=== PATIENT | female | born 1955 | race Caucasian/White ===

== ENCOUNTER 2017-06-07 05:59 | Day surgery (SDC) | payer BC ==
[2017-06-07] MEDS ORDERED: Versed 2 MG/2 ML Injection IV ONE (06:00)
[2017-06-07] MEDS ORDERED: DIPRIVAN 200 MG/20 ML IV ONE (06:00)
[2017-06-07] MEDS ORDERED: Lactated Ringers 1,000 ML IV SCH (06:30)
--- NOTE | 2017-06-07 08:09 | OP ---
SURGERY DATE/TIME: 06/07/2017 0744 PREOPERATIVE DIAGNOSIS: Screening exam. POSTOPERATIVE DIAGNOSIS: Normal colon. PROCEDURE: Colonoscopy. SURGEON: Dr. Gold. ANESTHESIA: Medications were given by the anesthesia department. HISTORY: The patient is a 62 year old white female presenting now for her first screening colonoscopy. She was appraised of the risks of the procedure including the risk of perforation, phlebitis, untoward reaction to medication, bleeding or missed lesions. The patient verbalized her understanding and desired to have the procedure performed. DESCRIPTION OF PROCEDURE: The patient was given the medications by the anesthesia department. She had continuous pulse oximetry, ECG monitoring, intermittent blood pressure monitoring and tidal CO2 monitoring during the examination. She was placed in left lateral decubitus position. A digital rectal examination was performed and revealed normal anal sphincter tone and no masses. The flexible Olympus pediatric colonoscope was used to intubate the rectum. A view of the colon was developed sequentially to the cecum. Upon insertion and withdrawal, including a retroflex view in the rectum, no mucosal lesions were encountered. The scope was removed from the patient who tolerated the procedure well and was sent back to OP recovery in good condition. The prep was noted to be fair to good.
[2017-06-07 08:41] VITALS: O2SAT 96
[2017-06-07 08:58] VITALS: BP 122/72; PULSE 65
== END 2017-06-07 09:00 | disposition home or self-care (01) ==
LOC: SDC 05:59
PROVIDERS: ATTEND Family Medicine
PROC: 0DJD8ZZ Inspection of Lower Intestinal Tract, Via Natural or Artificial Opening Endoscopic (ICD-10-PCS; principal; 2017-06-07)
DX: Z12.11 Encounter for screening for malignant neoplasm of colon (principal)
CPT/HCPCS: 00810; J2250; J2704

== ENCOUNTER 2018-10-21 19:47 | Emergency (ER) | payer BC ==
[2018-10-21] MEDS ORDERED: ANTIVERT 25 MG PO ONE (20:10)
[2018-10-21 20:21] LABS: BASOPHIL % 0.4 % (0.0-0.4); Basophil (Absolute #) 0.05 (0-0.4); Eosinophil % 1.4 % (0.00-5.0); Eosinophil (Absolute #) 0.17 (0-0.5); Granulocyte Absolute (ANC) 7.45 (1.4-6.9); Granulocytes % 60.9 % (36.0-66.0); Hematocrit 44.1 % (35-47); Hemoglobin 14.7 gm/dl (12.0-16.0); Lymphocyte (Absolute #) 3.33 (1.0-4.6); Lymphocytes % 27.2 % (24.0-44.0); Mean Cell Volume 89.8 fl (78-100); Mean Corpuscular Hemoglobin 29.9 pg (26-32); Mean Corpuscular Hgb Concent. 33.3 g/dl (32-36); Mean Platelet Volume 9.4 fl (6-9.5); Monocyte (Absolute #) 1.23 (0.0-1.3); Monocytes % 10.1 % (0.0-12.0); Platelet Count 304 K/mm3 (150-450); Red Blood Count 4.91 M/mm3 (4.1-5.4); Red Cell Distribution Width 13.2 % (11.5-14.0); White Blood Count 12.2 K/mm3 (4.0-10.5)
[2018-10-21 20:31] LABS: ALBUMIN 4.8 g/dL (3.5-5.0); ALKALINE PHOSPHATASE 60 U/L (38-126); BLOOD UREA NITROGEN 13 mg/dL (7-17); CHLORIDE 102 mmol/L (98-107); Calcium 9.8 mg/dL (8.4-10.2); Carbon Dioxide 33 mmol/L (22-30); Creatinine 1 0.79 mg/dL (0.52-1.04); Glucose 92 mg/dL (74-106); Potassium 4.4 mmol/L (3.5-5.1); SGOT/AST 20 U/L (14-36); SGPT/ALT 22 U/L (0-35); SODIUM 144 mmol/L (137-145); Total Protein 7.9 g/dL (6.3-8.2)
[2018-10-21] MEDS ORDERED: Zestril 5 MG PO STA (22:07)
[2018-10-21 22:56] LABS: Appearance CLEAR (CLEAR); Bilirubin NEGATIVE (NEGATIVE); Blood NEGATIVE Ery/ul (0-5); Epithelial Cells RARE /HPF (FEW); Glucose NEGATIVE (NEGATIVE); Ketones NEGATIVE (NEGATIVE); Leukocyte Esterase SMALL (NEGATIVE); Mucus SLIGHT /HPF (NEGATIVE); Nitrite NEGATIVE (NEGATIVE); Protein,Urine Dip NEGATIVE (Negative); Urobilinogen NEGATIVE mg/dL (0-1)
[2018-10-21 22:57] LABS: Bacteria FEW /HPF (NEGATIVE)
[2018-10-21] MEDS ORDERED: Levofloxacin 250MG Tablet ONE (23:23)
[2018-10-21] MEDS ORDERED: Levofloxacin 250MG Tablet PO ONE (23:26)
[2018-10-21] MEDS: Levofloxacin 250MG Tablet PO ONE ×2 (23:26→23:30)
[2018-10-21 23:44] VITALS: BP 137/77; PULSE 72; O2SAT 98
--- NOTE | 2018-10-21 23:54 | ERPHSYRPT ---
- History of Present Illness Source: patient Exam Limitations: no limitations Patient Subjective Stated Complaint: HTN Triage Nursing Assessment: Patient ambulated back to ED and transferred self to bed. Patient A+O X 3. Patient complains of HTN. Patient states her blood pressure 137/96 and she was feeling extremely dizzy. Patient states she had a med change recently. Her Altace 10mg was discontinued per Dr. Malik and Dr. Cardenas. Patient's lungs clear a/p kendrick. heart tones audible. No edema present. Physician History: Pt is a 63 y/o female that stated, her BP was elevated for a few days. She felt dizzy and felt like the whole room is spinning. She is worried that it might be secondary to her elevated BP. Pt denies F/C/S. No cough, SOB or wheeze. No chest pain or palpitations. No N/V/D or abdominal pain. Timing/Duration: today Severity: mild Modifying Factors: Improves With: immobilization, movement Associated Symptoms: denies symptoms Allergies/Adverse Reactions: acetaminophen [From Vicodin] Allergy (Verified 10/21/18 20:01) cefaclor [From Ceclor] Allergy (Verified 10/21/18 20:01) hydrocodone [From Vicodin] Allergy (Verified 10/21/18 20:01) nitrofurantoin [From Macrobid] Allergy (Verified 10/21/18 20:01) Sulfa (Sulfonamide Antibiotics) Allergy (Verified 10/21/18 20:01) Penicillins Adverse Reaction (Verified 10/21/18 20:01) Home Medications: Atorvastatin Calcium [Lipitor 40Mg] 40 mg PO DAILY 05/31/17 [History] Escitalopram Oxalate [Lexapro] 20 mg PO DAILY 05/31/17 [History] Omeprazole 20 MG [Prilosec 20 mg] 20 mg PO DAILY 05/31/17 [History] hydroCHLOROthiazide [Hydrochlorothiazide] 12.5 mg PO DAILY 05/31/17 [History] Ezetimibe 10 mg [Zetia 10 MG] 1 tab PO DAILY 10/21/18 [History] Hx Tetanus, Diphtheria Vaccination/Date Given: Yes () Hx Influenza Vaccination/Date Given: Yes Hx Pneumococcal Vaccination/Date Given: No Immunizations Up to Date: Yes - Review of Systems Constitutional: No Fever, No Chills Eyes: No Symptoms Ears, Nose, & Throat: No Symptoms Respiratory: No Cough, No Dyspnea Cardiac: No Chest Pain, No Edema, No Syncope Abdominal/Gastrointestinal: No Abdominal Pain, No Nausea, No Vomiting, No Diarrhea Genitourinary Symptoms: No Dysuria Musculoskeletal: No Back Pain, No Neck Pain Neurological: Dizziness - Past Medical History Pertinent Past Medical History: Yes Neurological History: No Pertinent History ENT History: No Pertinent History Cardiac History: High Cholesterol, Hypertension Respiratory History: No Pertinent History Endocrine Medical History: No Pertinent History Musculoskeletal History: No Pertinent History GI Medical History: GERD History: No Pertinent History Psycho-Social History: Depression Female Reproductive Disorders: No Pertinent History - Past Surgical History Past Surgical History: Yes Neuro Surgical History: No Pertinent History Cardiac: No Pertinent History Respiratory: No Pertinent History Gastrointestinal: Appendectomy, Cholecystectomy Genitourinary: No Pertinent History Musculoskeletal: Other Female Surgical History: No Pertinent History Other Surgical History: Carpal tunnel surgery. Left wrist pinning - Social History Smoking Status: Never smoker Exposure to second hand smoke: Yes Drug Use: none Patient Lives Alone: No - Female History Hx Last Menstrual Period: Hysterectomy Hx Now: No - Nursing Vital Signs Nursing Vital Signs: Initial Vital Signs Temperature 98.1 F 10/21/18 19:56 Pulse Rate 73 10/21/18 19:56 Respiratory Rate 18 10/21/18 19:56 Blood Pressure 163/97 10/21/18 19:56 O2 Sat by Pulse Oximetry 98 10/21/18 19:56 Pain Scale Pain Intensity 0 - Physical Exam General Appearance: no apparent distress, alert Eye Exam: PERRL/EOMI, eyes nml inspection Ears, Nose, Throat Exam: normal ENT inspection, TMs normal, pharynx normal, moist mucous membranes Respiratory Exam: normal breath sounds, lungs clear, No respiratory distress Cardiovascular Exam: regular rate/rhythm, normal heart sounds, normal peripheral pulses Gastrointestinal/Abdomen Exam: soft, normal bowel sounds, No tenderness, No mass Back Exam: normal inspection, normal range of motion, No CVA tenderness, No vertebral tenderness Extremity Exam: normal inspection, normal range of motion, pelvis stable Neurologic Exam: alert, oriented x 3, cooperative, normal mood/affect, nml cerebellar function, nml station & gait, sensation nml, No motor deficits SpO2: 98 - Course Nursing assessment & vital signs reviewed: Yes Ordered Tests: Active Orders 24 hr Category Date Time Status Instrumentation And Controls Designer STAT Care 10/21/18 20:11 Active Orthostatic Vital Signs STAT Care 10/21/18 20:11 Active CBC W DIFF Stat Lab 10/21/18 20:00 Completed CMP Stat Lab 10/21/18 20:00 Completed CULTURE,URINE Routine Lab 10/21/18 21:37 Received TROPONIN Q3H Lab 10/21/18 20:00 Completed TROPONIN Q3H Lab 10/21/18 23:10 Completed TROPONIN Q3H Lab 10/22/18 02:15 Ordered TROPONIN Q3H Lab 10/22/18 05:15 Ordered TROPONIN Q3H Lab 10/22/18 08:15 Ordered Urinalysis with Microscopy Stat Lab 10/21/18 21:37 Completed Medication Summary Discontinued Medications Generic Name Dose Route Start Last Admin Trade Name Freq PRN Reason Stop Dose Admin Levofloxacin 250 mg 10/21/18 23:19 10/21/18 23:30 Levofloxacin 250mg Tablet PO 10/21/18 23:20 250 mg STAT ONE Administration Levofloxacin Confirm 10/21/18 23:23 Levofloxacin 250mg Tablet Administered 10/21/18 23:24 Dose 250 mg .ROUTE .STK-MED ONE Levofloxacin 250 mg 10/21/18 23:26 Levofloxacin 250mg Tablet PO 10/21/18 23:27 STAT ONE Lisinopril 5 mg 10/21/18 22:07 10/21/18 22:45 Zestril 5 Mg PO 10/21/18 22:08 5 mg STAT STA Administration Meclizine HCl 50 mg 10/21/18 20:10 10/21/18 20:56 Antivert 25 Mg PO 10/21/18 20:11 50 mg STAT ONE Administration Lab/Rad Data: Laboratory Result Diagrams 10/21/18 20:00 10/21/18 20:00 Laboratory Results 10/21/18 10/21/18 10/21/18 Range/Units 23:10 21:37 20:00 WBC (4.0-10.5) K/mm3 RBC (4.1-5.4) M/mm3 Hgb (12.0-16.0) gm/dl Hct (35-47) % MCV (78-100) fl MCH (26-32) pg MCHC (32-36) g/dl RDW (11.5-14.0) % Plt Count (150-450) K/mm3 MPV (6-9.5) fl Gran % (36.0-66.0) % Eos # (Auto) (0-0.5) Absolute Lymphs (auto) (1.0-4.6) Absolute Monos (auto) (0.0-1.3) Lymphocytes % (24.0-44.0) % Monocytes % (0.0-12.0) % Eosinophils % (0.00-5.0) % Basophils % (0.0-0.4) % Absolute Granulocytes (1.4-6.9) Basophils # (0-0.4) Sodium (137-145) mmol/L Potassium (3.5-5.1) mmol/L Chloride (98-107) mmol/L Carbon Dioxide (22-30) mmol/L Anion Gap (5-15) MEQ/L BUN (7-17) mg/dL Creatinine (0.52-1.04) mg/dL Estimated GFR ML/MIN Glucose (74-106) mg/dL Calcium (8.4-10.2) mg/dL Total Bilirubin (0.2-1.3) mg/dL AST (14-36) U/L ALT (0-35) U/L Alkaline Phosphatase (38-126) U/L Troponin I < 0.012 < 0.012 (0.000-0.034) ng/mL Serum Total Protein (6.3-8.2) g/dL Albumin (3.5-5.0) g/dL Urine Color YELLOW (YELLOW) Urine Appearance CLEAR (CLEAR) Urine pH 7.0 (5-6) Ur Specific [place] 1.010 (1.005-1.025) Urine Protein NEGATIVE (Negative) Urine Ketones NEGATIVE (NEGATIVE) Urine Blood NEGATIVE (0-5) [place]/ul Urine Nitrite NEGATIVE (NEGATIVE) Urine Bilirubin NEGATIVE (NEGATIVE) Urine Urobilinogen NEGATIVE (0-1) mg/dL Ur Leukocyte Esterase SMALL (NEGATIVE) Urine WBC (Auto) 6-10 (0-5) /HPF Urine RBC (Auto) NONE (0-2) /HPF U Epithel Cells (Auto) RARE (FEW) /HPF Urine Bacteria (Auto) FEW (NEGATIVE) /HPF Urine Mucus (Auto) SLIGHT (NEGATIVE) /HPF Urine Glucose NEGATIVE (NEGATIVE) mg/dL 10/21/18 10/21/18 Range/Units 20:00 20:00 WBC 12.2 H (4.0-10.5) K/mm3 RBC 4.91 (4.1-5.4) M/mm3 Hgb 14.7 (12.0-16.0) gm/dl Hct 44.1 (35-47) % MCV 89.8 (78-100) fl MCH 29.9 (26-32) pg MCHC 33.3 (32-36) g/dl RDW 13.2 (11.5-14.0) % Plt Count 304 (150-450) K/mm3 MPV 9.4 (6-9.5) fl Gran % 60.9 (36.0-66.0) % Eos # (Auto) 0.17 (0-0.5) Absolute Lymphs (auto) 3.33 (1.0-4.6) Absolute Monos (auto) 1.23 (0.0-1.3) Lymphocytes % 27.2 (24.0-44.0) % Monocytes % 10.1 (0.0-12.0) % Eosinophils % 1.4 (0.00-5.0) % Basophils % 0.4 (0.0-0.4) % Absolute Granulocytes 7.45 H (1.4-6.9) Basophils # 0.05 (0-0.4) Sodium 144 (137-145) mmol/L Potassium 4.4 (3.5-5.1) mmol/L Chloride 102 (98-107) mmol/L Carbon Dioxide 33 H (22-30) mmol/L Anion Gap 13.0 (5-15) MEQ/L BUN 13 (7-17) mg/dL Creatinine 0.79 (0.52-1.04) mg/dL Estimated GFR > 60.0 ML/MIN Glucose 92 (74-106) mg/dL Calcium 9.8 (8.4-10.2) mg/dL Total Bilirubin 0.40 (0.2-1.3) mg/dL AST 20 (14-36) U/L ALT 22 (0-35) U/L Alkaline Phosphatase 60 (38-126) U/L Troponin I (0.000-0.034) ng/mL Serum Total Protein 7.9 (6.3-8.2) g/dL Albumin 4.8 (3.5-5.0) g/dL Urine Color (YELLOW) Urine Appearance (CLEAR) Urine pH (5-6) Ur Specific [place] (1.005-1.025) Urine Protein (Negative) Urine Ketones (NEGATIVE) Urine Blood (0-5) [place]/ul Urine Nitrite (NEGATIVE) Urine Bilirubin (NEGATIVE) Urine Urobilinogen (0-1) mg/dL Ur Leukocyte Esterase (NEGATIVE) Urine WBC (Auto) (0-5) /HPF Urine RBC (Auto) (0-2) /HPF U Epithel Cells (Auto) (FEW) /HPF Urine Bacteria (Auto) (NEGATIVE) /HPF Urine Mucus (Auto) (NEGATIVE) /HPF Urine Glucose (NEGATIVE) mg/dL - Progress Progress Note: 10/21/18 23:54 Pt had labs in the ER, that were normal. Pt got Meclizine 50mg once, and she improved. As her BP was still a little high, I gave her Lisinopril 5mg once. Pt's BP improved. Pt's UA came with some bacteria and slightly elevated Leuk esterase, and a dose of Levaquin 500 was given. Pt will be prescribed meclizine as a PRN dose, and Cipro to finish therapy for 5 days. Pt should f/u with PCP. Will see patient in: office Counseled pt/family regarding: need for follow-up - Departure Time of Disposition: 23:57 Departure Disposition: Home Clinical Impression: Vertigo Condition: Stable Critical Care Time: No Referrals: DEXTER MALIK [Primary Care Provider] - Additional Instructions: F/U with PCP. Prescriptions: Ciprofloxacin HCl [Cipro] 250 mg PO BID 5 Days #10 tablet Meclizine HCl 25 mg [Antivert 25 mg] 25 mg PO TID PRN 10 Days #30 tablet PRN Reason: Dizziness
== END 2018-10-22 00:14 | disposition home or self-care (01) ==
LOC: ED 19:47
DX: R42 Dizziness and giddiness (principal); I10 Essential (primary) hypertension; K21.9 Gastro-esophageal reflux disease without esophagitis; E78.00 Pure hypercholesterolemia, unspecified; F32.9 Major depressive disorder, single episode, unspecified; Z79.899 Other long term (current) drug therapy
CPT/HCPCS: 36415; 80053; 81001; 84484; 85025; 87086; 93041; 99284; A9270-GY

== ENCOUNTER 2023-10-14 09:01 | Observation (INO) | payer MEDICARE, BC ==
[2023-10-14] MEDS ORDERED: Sodium Chloride 0.9% 1000 ML 1,000 ML ONE (09:11)
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
[2023-10-14] MEDS: Sodium Chloride 0.9% 1000 ML 1,000 ML IV STA (09:47)
[2023-10-14 11:07] LABS: Hematocrit 33.8 % (35-47); Mean Cell Volume 93.1 fL (78-100); Mean Corpuscular Hemoglobin 30.3 pg (26-32); Mean Corpuscular Hgb Concent. 32.5 g/dL (32-36); Mean Platelet Volume 8.2 fL (7.5-11.0); Platelet Count 383 x10^3/uL (150-450); Red Blood Count 3.63 x10^6/uL (4.1-5.4); Red Cell Distribution Width 14.5 % (11.5-14.0)
[2023-10-14 11:17] LABS: White Blood Count 32.8 x10^3/uL (4.0-10.5)
[2023-10-14 11:22] LABS: ALBUMIN 4.1 g/dL (3.5-5.0); BILIRUBIN,TOTAL 0.6 mg/dL (0.2-1.3); Calcium 8.4 mg/dL (8.4-10.2); Creatinine 1 0.84 mg/dL (0.52-1.04); EST GLOMERULAR FILTRATION RATE 75.2 ML/MIN; MAGNESIUM 2.4 mg/dL (1.6-2.3); Potassium 4.2 mmol/L (3.5-5.1); Total Protein 6.4 g/dL (6.3-8.2)
[2023-10-14] MEDS ORDERED: CLINDAMYCIN-D5W 600 MG/50 ML*** 600 MG/50 ML BAG IV ONE (11:42)
[2023-10-14] MEDS: HEPARIN 5000 UNITS/0.5 ML (HIGH RISK MED) IV ONE (11:42)
[2023-10-14] MEDS ORDERED: HEPARIN 5000 UNITS/0.5 ML (HIGH RISK MED) ONE (11:42)
[2023-10-14] MEDS: CLINDAMYCIN-D5W 600 MG/50 ML*** 600 MG/50 ML BAG IV STA (11:43)
[2023-10-14 11:45] LABS: INR 1.06 (0.8-3.0); PROTIME 11.5 SECONDS (9.4-12.5); PTT < 20.0 SECONDS (25.1-36.5)
--- NOTE | 2023-10-14 12:21 | XRAY ---
Indication: Swelling and erythema. Two-dimensional sonogram and color Doppler imaging major venous vessels left leg performed. Comparison: None Occluding thrombi seen throughout the common femoral, superficial femoral, popliteal, posterior tibial, and greater saphenous veins. Comment: Preliminary report was given.
[2023-10-14 12:31] LABS: ANISOCYTOSIS 1+; Hypochromia 1+; Lymphocytes 5 % (24-44); Neutrophils 95 % (36.0-66.0); Total Cells Counted 100; Toxic Granulation 1+
[2023-10-14 12:33] LABS: Platelet Estimate INCREASED (NORMAL)
--- NOTE | 2023-10-14 12:41 | XRAY ---
CLINICAL HISTORY: near syncope TECHNIQUE: X-ray chest PA and lateral views. COMPARISON: None. FINDINGS: No consolidation or infiltrates seen in both lung marie. Normal jonn and mediastinum. Normal appearing cardiac silhouette. Both costophrenic angles are clear. Unfolding of aorta seen. Visualized bones are grossly unremarkable. IMPRESSION: No active pulmonary pathology seen. Electronically Signed by: Tristin Nichole MD. (10/14/2023 12:37:39 EST)
--- NOTE | 2023-10-14 12:49 | XRAY ---
CLINICAL HISTORY: near syncope TECHNIQUE: An axial non-contrast CT scan of the brain was performed from the skull base to the high parietal region. Coronal and sagittal reformatted images were also provided. COMPARISON: None. FINDINGS: The visualized brain parenchyma shows a normal appearance. Epps-white matter differentiation is maintained. No midline shifts or deformity. No intracerebral or extra axial hematoma. Normal size and configuration of the cerebral ventricles. Normal CT appearance of the posterior fossa structures namely the cerebellar hemispheres, brainstem, and cerebellar peduncles. The IACs are unremarkable. The cerebello-pontine angles are clear. The pituitary gland, the pineal gland, and the optic chiasm are unremarkable. The osseous structures in the skull base are unremarkable. No definite calvarium fractures. The scanned paranasal sinuses shows mild mucosal thickening in right posterior ethmoidal sinus could suggest mucosal disease. Slightly deviated nasal septum towards left side. Edwina bullosa seen in right middle turbinate. IMPRESSION: 1. The non-enhanced CT study for the brain is unremarkable. 2. Early changes of stroke may sometimes not be detected on CT scan. If clinically suspicious, MRI with diffusion-weighted imaging is recommended. Electronically Signed by: Tristin Nichole MD. (10/14/2023 12:45:27 EST)
[2023-10-14] MEDS ORDERED: Heparin 25,000 units/D5W: USE ORDER SET PROTO 25,000 UNITS/250 ML BAG IV ONE (13:33)
[2023-10-14] MEDS: Heparin 25,000 units/D5W: USE ORDER SET PROTO 25,000 UNITS/250 ML BAG IV SCH (13:34)
[2023-10-14] MEDS ORDERED: HEPARIN 5000 UNITS/0.5 ML (HIGH RISK MED) IV PRN (15:56)
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
[2023-10-14] MEDS: Sodium Chloride 0.9% 1000 ML 1,000 ML IV SCH (17:10)
[2023-10-14] MEDS: PIPERACILLIN/TAZOBACTAM 4.5 GM in Sodium Chloride 100ML MINI-BAG PLUS 100 ML IV SCH (17:12)
[2023-10-14] MEDS: PHARMACY DOSING REQUIRED: VANCOMYCIN IV STA (17:19)
--- NOTE | 2023-10-14 17:41 | PCM.DS ---
Discharge Summary Date of Admission: 10/14/23 15:00 Date of Discharge: 10/14/23 Admitting Physician: TRINA MARTINEZ MD 10/14/23 Primary Care Provider: RUPINDER RAHMAN DO Allergies Allergies acetaminophen [From Vicodin] Allergy (Verified 10/21/18 20:01) cefaclor [From Ceclor] Allergy (Verified 10/21/18 20:01) hydrocodone [From Vicodin] Allergy (Verified 10/21/18 20:01) nitrofurantoin [From Macrobid] Allergy (Verified 10/21/18 20:01) Sulfa (Sulfonamide Antibiotics) Allergy (Verified 10/21/18 20:01) Penicillins Adverse Reaction (Verified 10/21/18 20:01) Hospital Summary - Hospital Course Hospital Course: 10/14/23 is a 68 year old female with PMHX of arrythmia, hyperlipidemia, HTN, DJD, fractures, depression, and obesity. Pt states she had low back surgery on 09/26/23 at [facility] by Dr. Goel and since has had numbness in her left foot with left foot drop. Today pt explains she was sitting brushing her hair at home and had a near syncopal episode and eased herself to the floor. Pt's found her down with her head under the chair and the walker on top of her. EMS arrived and pt had a low BP of 80/50. Will have to try and use doppler to obtain pedal pulses, as they are unable to feel BL. When pt arrived to acute care unit she was moved over to bed and it was found that her back incision is coming open, draining, black, and foul smelling. CT of lumbar and thoracic regions ordered. She has a WBC of 32.8. Will check a lactic acid and ESR. BP is stable at this time. She was started on a heparin gtt in the ER for occluding thrombi seen throughout the common femoral, superficial femoral, pop liteal, posterior tibial, and greater saphenous veins. Head CT negative. She will most likely need transfer to where she had her surgery. Awaiting CT results. She denies CP, SOB, abd. pain, N/V/D. - Vitals & Intake/Output Vital Signs: Vital Signs Temperature 96 F 10/14/23 15:29 Pulse Rate 73 10/14/23 16:00 Respiratory Rate 18 10/14/23 16:17 Blood Pressure 115/67 10/14/23 15:29 O2 Sat by Pulse Oximetry 100 10/14/23 15:29 Intake & Output: Intake & Output 10/12/23 10/13/23 10/14/23 10/15/23 11:59 11:59 11:59 11:59 Weight 81.1 kg 76.1 kg - Lab Result Diagrams: 10/14/23 10:55 10/14/23 10:55 Lab Results-Last 24 Hrs: Lab Results-Last 24 Hours 10/14/23 10/14/23 10/14/23 Range/Units 10:55 10:55 10:55 WBC 32.8 H* (4.0-10.5) x10^3/uL RBC 3.63 L (4.1-5.4) x10^6/uL Hgb 11.0 L (12.0-16.0) g/dL Hct 33.8 L (35-47) % MCV 93.1 (78-100) fL MCH 30.3 (26-32) pg MCHC 32.5 (32-36) g/dL RDW 14.5 H (11.5-14.0) % Plt Count 383 (150-450) x10^3/uL MPV 8.2 (7.5-11.0) fL Segmented Neutrophils 95 H (36.0-66.0) % Lymphocytes (Manual) 5 L (24-44) % Hypochromia 1+ Toxic Granulation 1+ Platelet Estimate INCREASED (NORMAL) RBC Morphology ABNORMAL Anisocytosis 1+ Smear Path Review Pending ESR (0-20) mm/hr PT (9.4-12.5) SECONDS INR (0.8-3.0) APTT (25.1-36.5) SECONDS Sodium 135 L (137-145) mmol/L Potassium 4.2 (3.5-5.1) mmol/L Chloride 103 (98-107) mmol/L Carbon Dioxide 22 (22-30) mmol/L Anion Gap 13.0 (5-15) MEQ/L BUN 25 H (7-17) mg/dL Creatinine 0.84 (0.52-1.04) mg/dL Estimated GFR 75.2 ML/MIN Glucose 101 (74-106) mg/dL Lactic Acid (0.4-2.0) Calcium 8.4 (8.4-10.2) mg/dL Magnesium 2.4 H (1.6-2.3) mg/dL Total Bilirubin 0.60 (0.2-1.3) mg/dL AST 16 (14-36) U/L ALT 25 (0-35) U/L Alkaline Phosphatase 97 (38-126) U/L Creatine Kinase (30-135) U/L Troponin I < 0.012 (0.000-0.034) ng/mL Serum Total Protein 6.4 (6.3-8.2) g/dL Albumin 4.1 (3.5-5.0) g/dL 10/14/23 10/14/23 10/14/23 Range/Units 11:25 13:05 13:05 WBC (4.0-10.5) x10^3/uL RBC (4.1-5.4) x10^6/uL Hgb (12.0-16.0) g/dL Hct (35-47) % MCV (78-100) fL MCH (26-32) pg MCHC (32-36) g/dL RDW (11.5-14.0) % Plt Count (150-450) x10^3/uL MPV (7.5-11.0) fL Segmented Neutrophils (36.0-66.0) % Lymphocytes (Manual) (24-44) % Hypochromia Toxic Granulation Platelet Estimate (NORMAL) RBC Morphology Anisocytosis Smear Path Review ESR (0-20) mm/hr PT 11.5 (9.4-12.5) SECONDS INR 1.06 (0.8-3.0) APTT < 20.0 L 80.5 H (25.1-36.5) SECONDS Sodium (137-145) mmol/L Potassium (3.5-5.1) mmol/L Chloride (98-107) mmol/L Carbon Dioxide (22-30) mmol/L Anion Gap (5-15) MEQ/L BUN (7-17) mg/dL Creatinine (0.52-1.04) mg/dL Estimated GFR ML/MIN Glucose (74-106) mg/dL Lactic Acid (0.4-2.0) Calcium (8.4-10.2) mg/dL Magnesium (1.6-2.3) mg/dL Total Bilirubin (0.2-1.3) mg/dL AST (14-36) U/L ALT (0-35) U/L Alkaline Phosphatase (38-126) U/L Creatine Kinase (30-135) U/L Troponin I < 0.012 (0.000-0.034) ng/mL Serum Total Protein (6.3-8.2) g/dL Albumin (3.5-5.0) g/dL 10/14/23 10/14/23 10/14/23 Range/Units 15:04 16:05 16:06 WBC (4.0-10.5) x10^3/uL RBC (4.1-5.4) x10^6/uL Hgb (12.0-16.0) g/dL Hct (35-47) % MCV (78-100) fL MCH (26-32) pg MCHC (32-36) g/dL RDW (11.5-14.0) % Plt Count (150-450) x10^3/uL MPV (7.5-11.0) fL Segmented Neutrophils (36.0-66.0) % Lymphocytes (Manual) (24-44) % Hypochromia Toxic Granulation Platelet Estimate (NORMAL) RBC Morphology Anisocytosis Smear Path Review ESR 1 (0-20) mm/hr PT (9.4-12.5) SECONDS INR (0.8-3.0) APTT (25.1-36.5) SECONDS Sodium (137-145) mmol/L Potassium (3.5-5.1) mmol/L Chloride (98-107) mmol/L Carbon Dioxide (22-30) mmol/L Anion Gap (5-15) MEQ/L BUN (7-17) mg/dL Creatinine (0.52-1.04) mg/dL Estimated GFR ML/MIN Glucose (74-106) mg/dL Lactic Acid 0.8 (0.4-2.0) Calcium (8.4-10.2) mg/dL Magnesium (1.6-2.3) mg/dL Total Bilirubin (0.2-1.3) mg/dL AST (14-36) U/L ALT (0-35) U/L Alkaline Phosphatase (38-126) U/L Creatine Kinase (30-135) U/L Troponin I < 0.012 (0.000-0.034) ng/mL Serum Total Protein (6.3-8.2) g/dL Albumin (3.5-5.0) g/dL 10/14/23 Range/Units 16:38 WBC (4.0-10.5) x10^3/uL RBC (4.1-5.4) x10^6/uL Hgb (12.0-16.0) g/dL Hct (35-47) % MCV (78-100) fL MCH (26-32) pg MCHC (32-36) g/dL RDW (11.5-14.0) % Plt Count (150-450) x10^3/uL MPV (7.5-11.0) fL Segmented Neutrophils (36.0-66.0) % Lymphocytes (Manual) (24-44) % Hypochromia Toxic Granulation Platelet Estimate (NORMAL) RBC Morphology Anisocytosis Smear Path Review ESR (0-20) mm/hr PT (9.4-12.5) SECONDS INR (0.8-3.0) APTT (25.1-36.5) SECONDS Sodium (137-145) mmol/L Potassium (3.5-5.1) mmol/L Chloride (98-107) mmol/L Carbon Dioxide (22-30) mmol/L Anion Gap (5-15) MEQ/L BUN (7-17) mg/dL Creatinine (0.52-1.04) mg/dL Estimated GFR ML/MIN Glucose (74-106) mg/dL Lactic Acid (0.4-2.0) Calcium (8.4-10.2) mg/dL Magnesium (1.6-2.3) mg/dL Total Bilirubin (0.2-1.3) mg/dL AST (14-36) U/L ALT (0-35) U/L Alkaline Phosphatase (38-126) U/L Creatine Kinase < 20 L (30-135) U/L Troponin I (0.000-0.034) ng/mL Serum Total Protein (6.3-8.2) g/dL Albumin (3.5-5.0) g/dL Micro Results-Entire Visit: Accuchecks Date 10/14/23 - Radiology Exams Ordered Rad Exams-Entire Visit: Radiology Procedures Category Date Time Status CHEST 2 VIEWS (PA AND LAT) Stat Exams 10/14/23 09:41 Completed HEAD WITHOUT CONTRAST [CT] Stat Exams 10/14/23 09:42 Completed LUMBAR SPINE WITH [CT] Stat Exams 10/14/23 15:19 Ordered THORACIC SPINE W CONTRAST [CT] Stat Exams 10/14/23 15:18 Ordered VENOUS UNILAT/LIMITED EXTREMIT [US] Stat Exams 10/14/23 10:08 Completed - Procedures and Test Procedures and Tests throughout Hospitalization: Therapy Orders & Screens 10/14/23 15:19 EKG [id number] Comment: Diagnosis: Near Syncope; Cellulitis of left leg; DVT of left leg. 10/14/23 15:56 OT Screen per Nursing Assess ONCE Comment: Protocol Order Physician Instructions: Greater than 3 points order OT Admission Screening Reason For Exam: Triggered on Admission Diagnosis: Near Syncope; Cellulitis of left leg; DVT of left leg. Open Wound/Cellutlitis/Pressure Ulcers: Yes Acute Fx/ORIF/Change in wt bearing status: No Severe MUSCULOSKELETAL pain: No ADL Dysfunction: No Acute CVA w/Hemiparesis/Hemiplegia: No Decreased Functional Mobility/Strength: No Sprain/Strain: No Acute Post-op Mobility Dysfunction: No Total Points: 5 PT Screen per Nursing Assess ONCE Comment: Protocol Order Physician Instructions: Greater than 3 points order PT Admission Screenin Reason For Exam: Triggered on Admission Diagnosis: Near Syncope; Cellulitis of left leg; DVT of left leg. Open Wound/Cellutlitis/Pressure Ulcers: Yes Acute Fx/ORIF/Change in wt bearing status: No Severe MUSCULOSKELETAL pain: No ADL Dysfunction: No Acute CVA w/Hemiparesis/Hemiplegia: No Decreased Functional Mobility/Strength: No Sprain/Strain: No Acute Post-op Mobility Dysfunction: No Total Points: 5 10/14/23 17:18 EKG ONCE Comment: Diagnosis: Near Syncope; Cellulitis of left leg; DVT of left leg. Discharge Exam General Appearance: no apparent distress, alert Neurologic Exam: alert, oriented x 3, cooperative, normal mood/affect, nml cerebellar function, sensation nml, motor weakness, No motor deficits Eye Exam: PERRL, EOMI, eyes nml inspection Ears, Nose, Throat Exam: normal ENT inspection, pharynx normal, moist mucous membranes Neck Exam: normal inspection, non-tender, supple, full range of motion Respiratory Exam: normal breath sounds, lungs clear, No respiratory distress Cardiovascular Exam: regular rate/rhythm, normal heart sounds, other ((pulses were found BL pedial with doppler and marked, BL feet cold to touch. Left leg cooler than right.)) Gastrointestinal/Abdomen Exam: soft, No tenderness, No mass Pelvic Exam: deferred Rectal Exam: deferred Back Exam: normal inspection, normal range of motion, other ((Recent back surgery incision appears to be open at the top with clear drainage. + some redness with dark eschar area near top. Foul smelling drainage.)), No CVA tenderness, No vertebral tenderness Extremity Exam: normal inspection, normal range of motion, parasthesia ((left leg numbness)) Skin Exam: normal color, warm, dry, other (see back exam) Final Diagnosis/Problem List - Final Discharge Diagnosis/Problem (1) Syncope Current Visit: Yes Status: Acute Code(s): R55 - SYNCOPE AND COLLAPSE (2) Left leg DVT Current Visit: Yes Status: Acute Code(s): I82.402 - ACUTE EMBOLISM AND THOMBOS UNSP DEEP VEINS OF L LOW EXTREM (3) Wound, open, back with complication Current Visit: Yes Status: Acute Code(s): S21.209A - UNSP OPN WND UNSP BK WL OF THORAX W/O PENET THOR CAV, INIT (4) Leukocytosis Current Visit: Yes Status: Acute Code(s): D72.829 - ELEVATED WHITE BLOOD CELL COUNT, UNSPECIFIED (5) Hyponatremia Current Visit: Yes Status: Acute Code(s): E87.1 - HYPO-OSMOLALITY AND HYPONATREMIA (6) Hypermagnesemia Current Visit: Yes Status: Acute Code(s): E83.41 - HYPERMAGNESEMIA (7) GERD (gastroesophageal reflux disease) Current Visit: Yes Status: Acute Code(s): K21.9 - GASTRO-ESOPHAGEAL REFLUX DISEASE WITHOUT ESOPHAGITIS (8) Hyperlipidemia Current Visit: Yes Status: Acute Code(s): E78.5 - HYPERLIPIDEMIA, UNSPECIFIED (9) HTN (hypertension) Current Visit: Yes Status: Acute Code(s): I10 - ESSENTIAL (PRIMARY) HYPERTENSION (10) Depression Current Visit: Yes Status: Acute Code(s): F32.A - DEPRESSION, UNSPECIFIED (11) Vertigo Current Visit: No Status: Chronic Assessment & Plan: (1) Syncope Current Visit: Yes Status: Acute Assessment & Plan: - episode x1 today, found pt down at home. - CK - 2:2 infection? - CT head IMPRESSION: 1. The non-enhanced CT study for the brain is unremarkable. 2. Early changes of stroke may sometimes not be detected on CT scan. If clinically suspicious, MRI with diffusion-weighted imaging is recommended. Code(s): R55 - SYNCOPE AND COLLAPSE (2) Left leg DVT Current Visit: Yes Status: Acute Assessment & Plan: - Venous duplex 10/14 Occluding thrombi seen throughout the common femoral, superficial femoral, popliteal, posterior tibial, and greater saphenous veins. - Heparin gtt started in ER - Pulses found in BL feet with doppler and marked Code(s): I82.402 - ACUTE EMBOLISM AND THOMBOS UNSP DEEP VEINS OF L LOW EXTREM (3) Wound, open, back with complication Current Visit: Yes Status: Acute Assessment & Plan: - recent back surgery on 09/26/23 at [place] with Angel with [facility]. - wound dehiscence at upper portion of incision - + foul smelling clear drainage - black eschar near top of wound - Pictures in chart - Transfer to higher level of care where Surgeon is for further eval - Unable to do CT lumbar and thoracic spine d/t only have 1 IV and unable to stop heaparin gtt, pt is a difficult stick. - WATER PIPE INSTALLER to obtain midline this evening. - Vancomycin and zosyn to start when 2nd line placed - Lactic acid and ESR pending. Code(s): S21.209A - UNSP OPN WND UNSP BK WL OF THORAX W/O PENET THOR CAV, INIT (4) Leukocytosis Current Visit: Yes Status: Acute Assessment & Plan: - 2:2 back wound infection - antibiotics - labs pending Code(s): D72.829 - ELEVATED WHITE BLOOD CELL COUNT, UNSPECIFIED (5) Hyponatremia Current Visit: Yes Status: Acute Assessment & Plan: - Mild, Na+ 135 Code(s): E87.1 - HYPO-OSMOLALITY AND HYPONATREMIA (6) Hypermagnesemia Current Visit: Yes Status: Acute Assessment & Plan: - Mg+ 2.4- trend Code(s): E83.41 - HYPERMAGNESEMIA (7) GERD (gastroesophageal reflux disease) Current Visit: Yes Status: Acute Assessment & Plan: - Continue home med Code(s): K21.9 - GASTRO-ESOPHAGEAL REFLUX DISEASE WITHOUT ESOPHAGITIS (8) Hyperlipidemia Current Visit: Yes Status: Acute Assessment & Plan: - continue home med Code(s): E78.5 - HYPERLIPIDEMIA, UNSPECIFIED (9) HTN (hypertension) Current Visit: Yes Status: Acute Assessment & Plan: - BP stable - May hold meds if needed Code(s): I10 - ESSENTIAL (PRIMARY) HYPERTENSION (10) Depression Current Visit: Yes Status: Acute Assessment & Plan: - Continue Wellbutrin Code(s): F32.A - DEPRESSION, UNSPECIFIED (11) Vertigo Current Visit: No Status: Chronic Assessment & Plan: - chronic takes Antivert at home- hold med for now Code(s): R42 - DIZZINESS AND GIDDINESS - Discharge Discharge Date: 10/14/23 Disposition: DC TO OTHER HOSP Condition: Stable Prescriptions: Continue Atorvastatin Calcium [Lipitor 40Mg] 40 mg PO DAILY Omeprazole 20 MG [Prilosec 20 mg] 20 mg PO DAILY Ezetimibe 10 mg [Zetia 10 MG] 1 tab PO DAILY Meclizine HCl 25 mg [Antivert 25 mg] 25 mg PO TID PRN 10 Days #30 tablet PRN Reason: Dizziness dexAMETHasone [Dexamethasone] 4 mg PO DAILY Ramipril [Altace] 2.5 mg PO BID Metoprolol Succinate 25 mg Xl* [Toprol-Xl 25MG Tablets] 25 mg PO HS Bupropion HCl 150 mg Sr [Wellbutrin SR 150 MG] 150 mg PO DAILY Follow up with: RUPINDER RAHMAN DO [Primary Care Provider] -
[2023-10-14] MEDS ORDERED: Xylocaine-Mpf 2% 5 Ml Vial ONE (17:45)
[2023-10-14] MEDS ORDERED: CLINDAMYCIN-D5W 600 MG/50 ML*** 600 MG/50 ML BAG IV SCH ×3 (18:00)
[2023-10-14] MEDS: VANCOMYCIN 1 GRAM/200 ML BAG 1 GM/200 ML PIGGYBACK IV SCH (18:26)
[2023-10-14 19:48] LABS: Amphetamine,Urine NEGATIVE (NEGATIVE); Barbiturate,Urine NEGATIVE (NEGATIVE); Cocaine,Urine NEGATIVE (NEGATIVE); Methadone,Urine NEGATIVE (NEGATIVE); Opiate,Urine NEGATIVE (NEGATIVE); PCP,Urine NEGATIVE (NEGATIVE); THC,Urine NEGATIVE (NEGATIVE)
[2023-10-14 19:51] LABS: Benzodiazepine,Urine NEGATIVE (NEGATIVE)
[2023-10-14 19:52] VITALS: BP 116/74; PULSE 82; RESP 16; TEMP 97; O2SAT 97
[2023-10-14 20:05] LABS: ADD URINE CULTURE? NO (NO); Appearance Clear (Clear); Bacteria None Seen /HPF (None Seen); Bilirubin Negative (Negative); Blood Negative (Negative); Epithelial Cells Rare /HPF (None Seen); Glucose, Urine Negative (Negative); Ketones Negative (Negative); Leukocyte Esterase Negative (Negative); Nitrite Negative (Negative); Ph 5.5 (4.6-8.0); Protein,Urine Dip 30 (Negative); RBC 0-2 /HPF (0-5); Specific Gravity 1.025 (1.005-1.030); Urobilinogen 0.2 mg/dL (0.2); WBC 0-2 /HPF (0-5)
[2023-10-14] MEDS ORDERED: Toprol-Xl 25MG Tablets PO SCH (22:00)
[2023-10-14] MEDS ORDERED: Altace 1.25 MG PO SCH (22:00)
[2023-10-15] MEDS ORDERED: ZOCOR 20MG PO SCH (10:00)
[2023-10-15] MEDS ORDERED: Protonix 40MG Tablet PO SCH (10:00)
[2023-10-15] MEDS ORDERED: Zetia 10 MG PO SCH (10:00)
[2023-10-15] MEDS ORDERED: Wellbutrin SR 150 MG PO SCH (10:00)
== END 2023-10-14 20:15 ==
LOC: ED 09:01 → ICU 15:00 → UNDODISOB 20:15
PROVIDERS: ADMIT Internal Medicine; ATTEND Internal Medicine
DX: R55 Syncope and collapse (principal); I82.402 Acute embolism and thrombosis of unspecified deep veins of left lower extremity; S21.209A Unspecified open wound of unspecified back wall of thorax without penetration into thoracic cavity, initial encounter; D72.829 Elevated white blood cell count, unspecified; E87.1 Hypo-osmolality and hyponatremia; E83.41 Hypermagnesemia; K21.9 Gastro-esophageal reflux disease without esophagitis; E78.5 Hyperlipidemia, unspecified; I10 Essential (primary) hypertension; F32.A Depression, unspecified; R42 Dizziness and giddiness; E66.9 Obesity, unspecified; Z79.899 Other long term (current) drug therapy; Z20.828 Contact with and (suspected) exposure to other viral communicable diseases
CPT/HCPCS: 36000; 36410; 36415; 70450; 71046; 76942; 80053; 80307; 81001; 82550; 83605; 83735; 84484; 85025; 85610; 85652; 85730; 87040; 87070; 87077; 87186; 93005; 93041; 93268; 93971; 94760; 96360; 96365; 96374; 99285; 99291; G0378; Q3014; J1644; J2543; J3370